=== PATIENT | female | born 1945 | race Caucasian/White ===

== ENCOUNTER → 2017-09-29 | Outpatient (CLI) | payer OTHER ==
[2013-04-09 14:51] VITALS: BP 133/87
--- NOTE | 2017-09-29 10:42 | RAD ---
HISTORY: Neck pain. Previous surgery. Study: Cervical spine with obliques Comparison: MRI from 04/24/2013 CT scan from 04/09/2013 Findings: The lateral view demonstrates normal curvature. There is 2-3 mm spondylolisthesis of C3 on C4 with 4 -5 mm of retrolisthesis of C5/C6. Moderate disc space narrowing is noted at C5/C6. The prevertebral soft tissues are normal. There is a screw transversing what most likely was a remote odontoid base fracture. This is unchanged from the CT scan. The posterior elements are intact. There is moderate to moderately severe facet arthropathy at multiple levels with moderate uncovertebral joint arthropa thy at multiple levels. Evidence for previous vertebroplasty is noted in the upper thoracic spine. There appears to be at least moderate foraminal stenosis on the right at C5/C6 and C6/C7 with probabl e similar findings on the left. The lateral masses C1 are symmetric about the lateral masses C2 and the odontoid process. IMPRESSION: 1. Cervical spondylosis as described above. 2. Evidence for previous internal fixation of what most likely was an odontoid base fracture. 3. No acute bony abnormalities are identified. Reported By:
--- NOTE | 2017-09-29 10:47 | RAD ---
HISTORY: Right shoulder pain. No history trauma. COPD. Study: Right shoulder: Three views Comparison: None Findings: There has been resection of the distal clavicle consistent with prior surgery. Mild downsloping of t he acromion is noted. Moderate degenerative changes noted at the rotator cuff insertion with what ap pears to be subchondral cyst formation. Moderate glenohumeral joint degeneration is present. Prior vertebroplasty has been performed in the upper thoracic and lower thoracic spine. There is coarsenin g of the lung markings felt to be due to chronic interstitial fibrosis. IMPRESSION: 1. Degenerative change in the right shoulder described above with findings of previous resection of the distal clavicle. 2. Coarsened lung markings consistent with chronic interstitial scarring. Follow-up chest radiograp h is recommended. Reported By:
--- NOTE | 2017-09-29 11:27 | RAD ---
HISTORY: Mid lower back pain. COPD. Study: AP and lateral thoracic spine with swimmer's Comparison: 03/17/2013, 04/27/2013 Findings: Moderately severe to severe osteopenia is noted. Moderate convex right thoracic and moderate convex left lumbar scoliosis is noted. Evidence for previous vertebroplasty is noted at multiple levels. E vidence for previous rotator cuff repair is noted on the left. Moderate to moderately severe degener ative changes noted in the right shoulder. The lateral view demonstrates exaggeration of thoracic ky phosis secondary to anterior compression of multiple vertebra. There may be minimal increase in the compression of T8 when compared to the prior examination. IMPRESSION: 1. Moderately severe to severe osteopenia with evidence for previous kyphoplasty at multiple levels. 2. There appears to be mild anterior compression that has developed at T8 since the prior examinatio n. This is of unknown chronicity as the prior examinations are several years old. Comparison to any more recent examinations would be of assistance. If there are none then MRI or CT scan is recommend ed. Reported By:
== END | disposition home or self-care (01) | DRG 552 ==
LOC: RAD 09:46
PROVIDERS: ATTEND Orthopaedic Surgery
DX: M47.814 Spondylosis without myelopathy or radiculopathy, thoracic region (principal); M89.8X8 Other specified disorders of bone, other site
CPT/HCPCS: 72050; 72072; 73030

== ENCOUNTER → 2017-10-12 | Outpatient (CLI) | payer OTHER ==
[2013-04-09 14:51] VITALS: BP 133/87
--- NOTE | 2017-10-13 08:12 | MRI ---
MRI OF THE THORACIC SPINE WITHOUT IV CONTRAST CLINICAL INDICATION: Vertebral fracture TECHNIQUE: Pre-contrast sagittal T1-, T2-, and T2-w fat-saturated images, and axial T1- and T2-w imag es of the thoracic spine. COMPARISON: 09/29/2017 x-ray FINDINGS: Severe kyphosis of the thoracic spine. Kyphoplasty changes in T5, T6, T7, T11 with associated dorothy celestino fractures.. No acute compression fractures. Specifically no evidence of acute fracture T8 which was suspected on the plain film. There is a normal marrow signal pattern. Severe multilevel degenerat ramsey disc disease without evidence of significant stenosis. IMPRESSION: 1. No evidence of acute compression fracture of T8 which was suspected on recent radiograph. 2. Severe multilevel degenerative disc disease and multiple severe compression fractures status post kyphoplasty. Reported By:
== END | disposition home or self-care (01) | DRG 552 ==
LOC: RAD 13:50
PROVIDERS: ATTEND Orthopaedic Surgery
DX: S22.009A Unspecified fracture of unspecified thoracic vertebra, initial encounter for closed fracture (principal); X58.XXXA Exposure to other specified factors, initial encounter; M51.34 Other intervertebral disc degeneration, thoracic region
CPT/HCPCS: 72146